=== PATIENT | female | born 1965 | race Caucasian/White ===

== ENCOUNTER → 2018-10-13 | Outpatient (CLI) | payer BC | LOC: FIMAGING 09:37 | PROVIDERS: ATTEND Internal Medicine | DX: Z12.31 Encounter for screening mammogram for malignant neoplasm of breast (principal) ==

== ENCOUNTER → 2018-12-23 | Outpatient (CLI) | payer BC | LOC: FIMAGING 12:54 | PROVIDERS: ATTEND Radiology Diagnostic Radiology | DX: I83.892 Varicose veins of left lower extremity with other complications (principal) ==

== ENCOUNTER 2019-04-16 07:02 | Day surgery (SDC) | payer BC | END 2019-04-16 14:24 | disposition home or self-care (01) | LOC: FIMAGING 07:02 ==